=== PATIENT | female | born 1970 | race Caucasian/White ===

== ENCOUNTER 2017-01-27 14:01 | Emergency (ER) | payer OTHER ==
[~2017-01-27] VITALS: Ht 157.5 cm; Wt 66.7 kg
[~2017-01-27 14:01] MED LIST: ATIVAN0.5 M1 PO; DOCUSATE SODIU100 M3 PO; FLONASE ALLERG9.9 ML; LEVOTHYROXINE100 MC1 PO; TIROSINT100 MC1 PO; ZYRTEC10 M3 PO
--- NOTE | 2017-01-27 14:28 | ED GI/GU/ABDOMINAL COMPLAINT ---
History of Present Illness General Chief Complaint: Female Urogenital Problems Stated Complaint: vag bleeding xs 2 weeks Source: patient, family Exam Limitations: no limitations Vital Signs & Intake/Output Vital Signs & Intake/Output Vital Signs Date Time Temp Pulse Resp B/P B/P Pulse O2 O2 Flow FiO2 Mean Ox Delivery Rate 01/27 1751 99.3 71 18 132/92 97 Room Air 01/27 1547 98.0 70 18 131/91 100 Room Air 01/27 1405 97.4 99 16 121/83 99 Room Air ED Intake and Output 01/28 0000 01/27 1200 Intake Total Output Total Balance Patient 147 lb Weight Weight Reported by Patient Measurement Method Allergies Coded Allergies: procaine (From [place]) (Severe, HYPOTENSION 07/18/16) Uncoded Allergies: EPIDURAL (Severe, HYPOTENSION 07/18/16) Reconcile Medications Levothyroxine Sodium (Tirosint) 125 MCG CAPSULE 2 TAB PO DAILY AC THYROID ( Reported) Triage Note: 46 Y/O FEMALE C/O VAGINAL BLEEDING X 3 WEEKS; STATES SHE HAD VAGINAL DELIVERY 14 WEEKS AGO AND THEN STARTED DEPO IN NOVEMBER; STATES SHE BEGAN HAVING VAGINGAL BLEEDING A FEW WEEKS AGO AND IS NOW NOTICING "BROWN BLOOD" WITH "CLOTS". ALSO REPORTS LOWER ABDOMINAL PAIN, DIARRHEA, AND HEADACHES. STATES PAIN RADIATES INTO BACK AT TIMES. DENIES URINARY SYMPTOMS Triage Nurses Notes Reviewed? yes ? n Is pt currently ? Yes HPI: 46 yo F PMH hypothyroidism, HCV presenting with vaginal bleeding, diarrhea, abdominal pain. Vaginal bleeding for the past 3 weeks, daily intermittent dark brown blood with small clots per vagina. Associated diarrhea for the last 3 weeks, patient states that she typically gets diarrhea when she stops taking her Synthroid, has not taken it for the last month despite having a prescription and insurance. Right lower quadrant abdominal pain for the last 2-3 weeks, intermittent, crampy quality, present currently, moderate intensity, intermittent unassociated right upper quadrant pain, sometimes postprandial. Associated nausea with 1 episode of nonbloody nonbilious emesis 3-4 days ago. Mild intermittent headaches, absent currently. As fevers, chills, chest pain, shortness of breath, palpitations, constipation, bloody stools, dysuria, hematuria, vaginal discharge, visual changes, or focal neurologic symptoms. Hasn't been sexually active in 8 months. Denies EtOH or drug use. (SCHOENECK MD,ANNAMARIA) Past History Travel History Traveled to [place] past 21 day No Medical History Any Pertinent Medical History? 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 No (ANNAMARIA HUGHES MD) Review of Systems Review of Systems Constitutional: Reports: malaise. Denies: chills, fever. EENTM: Reports: no symptoms. Respiratory: Reports: no symptoms. Cardiovascular: Reports: no symptoms. GI: Reports: abdominal pain, diarrhea, nausea, vomiting. Genitourinary: Reports: pain. Denies: discharge, dysuria, frequency, hematuria. Musculoskeletal: Reports: no symptoms. Skin: Reports: no symptoms. Neurological/Psychological: Reports: no symptoms. Hematologic/Endocrine: Reports: no symptoms. Immunologic/Allergic: Reports: no symptoms. All Other Systems: Reviewed and Negative (ANNAMARIA HUGHES MD) Physical Exam Physical Exam General Appearance: well developed/nourished, no apparent distress, alert Head: atraumatic, normal appearance, active bleeding Eyes: Bilateral: normal appearance. Ears, Nose, Throat, Mouth: moist mucous membrane Neck: normal inspection, supple, full range of motion Respiratory: normal breath sounds, chest non-tender, no respiratory distress Cardiovascular: regular rate/rhythm, normal peripheral pulses Gastrointestinal: normal bowel sounds, soft, non-tender Neurologic/Psych: no motor/sensory deficits, awake, alert Comments: Abdomen: Soft, Mild bilateral lower abdominal tenderness palpation, right greater than left, mild right upper quadrant tenderness palpation with negative Felix sign, no rebound or guarding Core Measures ACS in differential dx? No Severe Sepsis Present: No Septic Shock Present: No (ANNAMARIA HUGHES MD) Progress Differential Diagnosis: appendicitis, bowel obstruction, cholecystitis, ectopic , hepatitis, ischemic bowel, inflamm bowel dis, intrauterine , kidney stone, ovarian cyst, ovarian torsion, PID/cervicitis, PUD/GERD Plan of Care: Orders Procedure Date/time Status GENITAL CULTURE 01/27 1755 Active TRICHOMONAS 01/27 1750 Complete POTASSIUM HYDROXIDE (MORTEZA) 01/27 1750 Complete CHLAMYDIA-GC DNA PROBE 01/27 1750 Active Add-on Test (ER Only) 01/27 1534 Active THYROID STIMULATING HORMONE 01/27 1520 Complete FREE T4 01/27 1520 Complete LIPASE 01/27 1428 Complete COMPREHENSIVE METABOLIC PANEL 01/27 1428 Complete CBC WITHOUT DIFFERENTIAL 01/27 1428 Complete URINE 01/27 1409 Complete URINALYSIS 01/27 1408 Complete Laboratory Tests 01/27/17 1520: Anion Gap 10, Estimated GFR > 60, BUN/Creatinine Ratio 15.0, Glucose 72, Calcium 9.4, Total Bilirubin 0.7, AST 95 H, ALT 121 H, Alkaline Phosphatase 103, Total Protein 7.5, Albumin 4.4, Globulin 3.1, Albumin/Globulin Ratio 1.4, Lipase 62, TSH 84.200 H, Free T4 0.08 L, CBC w Diff NO MAN DIFF REQ, RBC 4.41, MCV 91.1, MCH 30.2, RDW 14.9 H, MPV 8.7, Gran % 60.9, Lymphocytes % 28.5, Monocytes % 7.7 , Eosinophils % 2.2, Basophils % 0.7, Absolute Granulocytes 3.6, Absolute Lymphocytes 1.7, Absolute Monocytes 0.5, Absolute Eosinophils 0.1, Absolute Basophils 0, PUBS MCHC 33.2 01/27/17 1412: Urine Test NEGATIVE 01/27/17 1412: Urinalysis LIGHT H, Urine Color YEL, Urine Clarity HAZY H, Urine pH 6.0, Ur Specific [place] >= 1.030, Urine Protein 30 H, Urine Ketones NEG, Urine Nitrite NEG, Urine Bilirubin NEG, Urine Urobilinogen 0.2, Ur Leukocyte Esterase NEG, Ur Microscopic SEDIMENT EXAMINED, Urine RBC 5-10 H, Urine WBC 1-3 H, Ur Epithelial Cells MOD H, Urine Bacteria MOD H, Urine Mucus MOD H, Urine Hemoglobin LARGE H, Urine Glucose NEG Microbiology 01/27 1750 GENITAL: MORTEZA Preparation - COMP 01/27 1750 GENITAL: Trichomonas Preparation - COMP 01/27 1750 GENITAL: Genital Culture - RECD 01/27 1750 GENITAL: GC DNA Probe - RECD 01/27 1750 GENITAL: Chlamydia DNA Probe (NANCY) - RECD 01/27 1749 GENITAL: GC Culture - CAN Cancelled: OE ERROR Kevincipal MDM: 46 yo F PMH hypothyroidism, HCV presenting with vaginal bleeding, diarrhea, abdominal pain. VSS, exam as above. DDx: Ovarian cyst, ovarian torsion , UTI, cystitis, pyelonephritis, STI, pelvic inflammatory disease, biliary pathology, colitis, hypothyroidism, less likely appendicitis, SBO, perforation. CMP with mild transaminitis, patient states that her LFTs are typically elevated secondary to hepatitis C. lipase normal. CBC without leukocytosis or anemia. UA contaminated with epithelial cells, significant blood, not especially suggestive of infection. U preg negative. Right Upper quadrant ultrasound without evidence of cholecystitis. TVUS with right ovarian cyst, and normal Doppler flow to bilateral ovaries without evidence of torsion. Pelvic exam performed, closed cervical os with mild dark brown blood in vaginal vault, significant CMT. Cultures for gonorrhea, chlamydia, Trichomonas sent, but given CMT will treat empirically with ceftriaxone and azithromycin. Patient's given follow-up information for several local [employer] M[employer] OPERATOR's. TSH elevated, free T4 low, patient has perception of her Synthroid, importance of adherence to medications discussed with patient, given that lack of appropriate thyroid supplementation is a likely underlying cause of her vaginal bleeding. Given cyst on ultrasound as likely cause of patient's intermittent right lower quadrant pain, further evaluation for appendicitis with CT discussed the patient, using a shared decision making strategy, the patient and I decided that she would monitor for worsening right lower quadrant pain or fevers at home, rather than pursuing a CT scan. Discharged with return precautions for signs of appendicitis, plan and follow-up with SE[employer] M[employer] OPERATOR when possible, plan and follow-up with PMD in the next 2-3 days. (ELLEN HERNDON,ANNAMARIA) Initial ED EKG: none (ELLEN HERNDON,ANNAMARIA) Departure Departure Disposition: HOME OR SELF CARE Condition: Stable Clinical Impression Primary Impression: Ovarian cyst Referrals: ALYX HERNDON,MO LUNA MD,ADRIEN GALVAN MD,SHIV RODRIGUEZ MD,ROCAEL HUSSEIN MD,NATE HERR MD,LAVELLE PENA MD,SHANIKA Additional Instructions: Follow-up with one of the [employer]'s listed in the referral section. Take Tylenol or ibuprofen for pain. Return to the emergency department for any new, worsening, or concerning symptoms. Departure Forms: Customer Survey General Discharge Information (ELLEN HERNDON,ANNAMARIA) Resident Co-Sign Statement Statement: ED Attending supervision documentation- [X] I saw and evaluated the patient. I have also reviewed all the pertinent lab results and diagnostic results. I agree with the findings and the plan of care as documented in the Resident's documentation. [X] I have reviewed the ED Record and agree with the Resident's documentation. [] Additions or exceptions (if any) to the Resident's note and plan are summarized below: [] (JOHN HERNDON,EARNEST [place])
[2017-01-27] MEDS ORDERED: TIROSINT125 MC1 PO (14:40)
[2017-01-27 15:27] LABS: ABSOLUTE BASOPHIL COUNT 0 /CUMM (0.0-0.2); ABSOLUTE EOSINOPHIL COUNT 0.1 /CUMM (0.0-0.7); ABSOLUTE GRANULOCYTE CT 3.6 /CUMM (1.4-6.5); ABSOLUTE LYMPH COUNT 1.7 /CUMM (1.2-3.4); ABSOLUTE MONOCYTE COUNT 0.5 /CUMM (0.10-0.60); BASOPHIL % 0.7 % (0.0-2.0); EOSINOPHIL % 2.2 % (0-5); GRANULOCYTE % 60.9 % (42.2-75.2); HEMATOCRIT 40.2 % (37-47); MEAN CORPUSCULAR HGB 30.2 PG (27.0-31.0); MEAN CORPUSCULAR HGB CONC 33.2 G/DL (33.0-37.0); MEAN CORPUSCULAR VOLUME 91.1 FL (81.0-99.0); MEAN PLATELET VOLUME 8.7 FL (7.4-10.4); PLATELET COUNT 310 /CUMM (130-400); RBC DISTRIBUTION WIDTH 14.9 % (11.5-14.5); RED BLOOD CELL CT 4.41 /CUMM (4.20-5.40); WHITE BLOOD CELL COUNT 5.9 /CUMM (4.8-10.8)
--- NOTE | 2017-01-27 16:31 | ULTRASOUND REPORT ---
EXAMINATION: ULTRASOUND PELVIS CLINICAL INFORMATION: Right lower quadrant pain. COMPARISON: None. TECHNIQUE: Real-time sonographic imaging of the uterus and bilateral adnexa via transabdominal and transvaginal approach. FINDINGS: The uterus is anteverted and measures 7.7 x 3.4 x 4.3 cm in sagittal, AP and transverse dimensions respectively. The cervical length is 1.9 cm. The endometrial stripe measures 0.3 cm in thickness. No uterine fibroids are identified. There are small echogenic foci within the endometrium, likely corresponding to calcifications. These calcifications are entirely nonspecific. The bilateral ovaries appear unremarkable. The right ovary is visualized on transabdominal ultrasound only and measures 3.1 x 1.8 x 2.8 cm, corresponding to a volume of 8.2 mL. There is a cyst within the right ovary measuring 2.1 x 1.1 x 2.4 cm. The left ovary measures 2.9 x 1.2 x 1.9 cm, corresponding to a volume of 3.4 mL. No significant free pelvic fluid. IMPRESSION: A 2.1 x 1.1 x 2.4 cm unilocular cyst within the right ovary. Incidental note is made of several punctate echogenic foci within the endometrium, likely corresponding to calcifications. These calcifications are entirely nonspecific. Otherwise, unremarkable pelvic ultrasound.
[2017-01-27 17:51] VITALS: BP 132/92
--- NOTE | 2017-01-27 19:16 | ULTRASOUND REPORT ---
EXAMINATION: US ABDOMEN LIMITED CLINICAL INFORMATION: Right upper quadrant pain.. COMPARISON: None TECHNIQUE: Real-time imaging of the right upper quadrant abdominal viscera. Color Doppler exam utilized. FINDINGS: PANCREAS: Pancreatic head and body are visualized and are normal. The tail is obscured by bowel gas LIVER: Normal. The liver demonstrates normal size, contour and echogenicity. No focal lesion or intrahepatic biliary duct dilatation. GALLBLADDER: Normal. The gallbladder is physiologically distended without evidence of stones, sludge, polyps, wall thickening or pericholecystic fluid. COMMON BILE DUCT: Normal in caliber measuring 0.3 cm in diameter. RIGHT KIDNEY: Normal. No hydronephrosis. No renal calculi or focal parenchymal lesions. The kidney measures 9.7 cm in maximum dimension. FREE FLUID: None. IMPRESSION: Normal ultrasound of the abdomen.
== END 2017-01-27 20:16 ==
LOC: ERH 14:01
PROVIDERS: Student in an Organized Health Care Education/Training Program
DX: N83.209 Unspecified ovarian cyst, unspecified side (principal)
CPT/HCPCS: 87070; 81001; 81025; 87040; 87491; 87591; 96372; J0456; J0696

== ENCOUNTER 2017-03-14 10:41 | Emergency (ER) | payer OTHER ==
[~2017-03-14] VITALS: Ht 160 cm; Wt 67.6 kg
[~2017-03-14 10:41] MED LIST changes: +TIROSINT125 MC1 PO
--- NOTE | 2017-03-14 11:27 | ED GI/GU/ABDOMINAL COMPLAINT ---
History of Present Illness General Chief Complaint: Abdominal Pain/Flank Pain Stated Complaint: R FLANK PAIN Source: patient Exam Limitations: no limitations Vital Signs & Intake/Output Vital Signs & Intake/Output Vital Signs Date Time Temp Pulse Resp B/P B/P Pulse O2 O2 Flow FiO2 Mean Ox Delivery Rate 03/14 1316 97.5 53 18 121/85 98 Room Air 03/14 1045 98.1 65 18 113/84 100 Room Air Allergies Coded Allergies: epinephrine (PALPATATIONS 02/24/17) Uncoded Allergies: EPIDURAL (Severe, HYPOTENSION 07/18/16) Reconcile Medications Hydrocodone/Acetaminophen (Hydrocodon-Acetaminophen 5-325) 5 MG-325 MG TABLET 1-2 TAB PO Q4-6 PRN PRN pain Levothyroxine Sodium (Tirosint) 125 MCG CAPSULE 2 TAB PO DAILY AC THYROID ( Reported) Triage Note: PT TO ED FOR "THE SAME THING I WAS HERE FOR A MONTH AGO" PT REPORTING RLQ ABD PAIN, WATERY DIARRHEA AND HEADACHE. Triage Nurses Notes Reviewed? yes ? N Is pt currently ? No Onset: Abrupt Duration: week(s):, constant, continues in ED Timing: recent history Quality/Severity: moderate, sharpness, severe Location: right lower quadrant Radiation: no radiation Activities at Onset: none No Modifying Factors: none HPI: 46-year-old female comes into emergency room with complaints of right lower abdominal pain has been going on for a month. Patient reports that she has a 15 -month-old baby at home. She is currently not breast-feeding. She's been transient pain for about a month. Patient was seen here back in January and had an ultrasound done of her abdomen and pelvic area which was normal. She reports that her symptoms have been persistent. Now she's had some associated headache and some diarrhea. Patient was on antibiotics for her tooth infection a few weeks ago. Denies any abdominal surgeries. Denies any other associated symptoms. (RAY NOLEN) Past History Travel History Traveled to [place] past 21 day No Medical History Any Pertinent Medical History? 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 No (RAY NOLEN) Review of Systems Review of Systems Constitutional: Reports: no symptoms. EENTM: Reports: no symptoms. Respiratory: Reports: no symptoms. Cardiovascular: Reports: no symptoms. GI: Reports: no symptoms. Genitourinary: Reports: no symptoms. Musculoskeletal: Reports: see HPI. Skin: Reports: no symptoms. Neurological/Psychological: Reports: no symptoms. Hematologic/Endocrine: Reports: no symptoms. Immunologic/Allergic: Reports: no symptoms. All Other Systems: Reviewed and Negative (RAY NOLEN) Physical Exam Physical Exam General Appearance: well developed/nourished, no apparent distress, alert, awake Head: atraumatic Eyes: Bilateral: normal appearance. Ears, Nose, Throat, Mouth: hearing grossly normal, moist mucous membrane Neck: normal inspection Respiratory: normal breath sounds, no respiratory distress Cardiovascular: regular rate/rhythm Gastrointestinal: soft, tenderness Back: normal inspection Extremities: normal range of motion Neurologic/Psych: awake, alert, oriented x 3, normal gait, normal mood/affect Skin: intact, normal color Core Measures ACS in differential dx? No Severe Sepsis Present: No Septic Shock Present: No (RAY NOLEN) Progress Differential Diagnosis: appendicitis, biliary colic, colon cancer, cholecystitis , diverticulitis, ectopic , gastritis, hernia, hemorrhoids, ischemic bowel, inflamm bowel dis, intrauterine , kidney stone, ovarian cyst, ovarian torsion, pancreatitis, PID/cervicitis, peptic ulcer, PUD/GERD, perforated viscous, SBO, UTI/pyelo Plan of Care: Orders Procedure Date/time Status Add-on Test (ER Only) 03/14 1216 Active THYROID STIMULATING HORMONE 03/14 1140 Complete TOTAL TRIODOTHYROXINE 03/14 1140 Complete THYROXINE 03/14 1140 Complete URINE 03/14 1127 Complete URINALYSIS 03/14 1127 Complete LIPASE 03/14 112 Complete COMPREHENSIVE METABOLIC PANEL 03/14 1127 Complete CBC WITHOUT DIFFERENTIAL 06/27 1127 Complete AMYLASE 06/27 1127 Complete Laboratory Tests 03/14/17 1140: Anion Gap 8, Estimated GFR > 60, BUN/Creatinine Ratio 17.5, Glucose 72, Calcium 9.5, Total Bilirubin 0.9, AST 62 H, ALT 73 H, Alkaline Phosphatase 77, Total Protein 7.2, Albumin 4.5, Globulin 2.7, Albumin/Globulin Ratio 1.7, Amylase 48, Lipase 47, TSH 20.600 H, Thyroxine (T4) 16.6 H, Total T3 1.38, CBC w Diff NO MAN DIFF REQ, RBC 3.96 L, MCV 92.1, MCH 30.4, RDW 15.1 H, MPV 9.1, Gran % 54.6 , Lymphocytes % 32.7, Monocytes % 9.7 H, Eosinophils % 2.2, Basophils % 0.8, Absolute Granulocytes 2.6, Absolute Lymphocytes 1.6, Absolute Monocytes 0.5, Absolute Eosinophils 0.1, Absolute Basophils 0, PUBS MCHC 33.0 03/14/17 1130: Urine Color YEL, Urine Clarity HAZY H, Urine pH 6.0, Ur Specific [place] 1.020, Urine Protein NEG, Urine Ketones NEG, Urine Nitrite NEG, Urine Bilirubin NEG, Urine Urobilinogen 1.0, Ur Leukocyte Esterase NEG, Ur Microscopic SEDIMENT EXAMINED, Urine RBC 1-3, Urine WBC 1-3 H, Ur Epithelial Cells MOD H, Urine Bacteria MOD H, Urine Hemoglobin NEG, Urine Glucose NEG, Urine Test NEGATIVE Microbiology 03/14 112 STOOL: Clostridium difficile Toxin A & B - CAN Cancelled: Cancelled via OE: Per MD Decision Diagnostic Imaging: Viewed by Me: CT Scan. Discussed w/RAD: CT Scan. Radiology Impression: EXAM TYPE: CAT - CT ABD & PELVIS W IV CONTRAST EXAMINATION : CT ABDOMEN AND PELVIS WITH CONTRAST CLINICAL INFORMATION: Right lower abdomen pain COMPARISON: Report of ultrasound 01/27/17 is normal TECHNIQUE: Multidetector volumetric imaging was performed of the abdomen and pelvis before and after the IV administration of 93 mL of Optiray 320 intravenous contrast. Sagittal and coronal reformatted images were obtained on the technologist's workstation. DLP: 324 mGy-cm FINDINGS: LUNG BASES: No suspicious abnormality in the visualized lower chest. There might be a tiny sliding-type hiatal hernia. LIVER, GALLBLADDER, AND BILIARY TREE: No suspicious abnormality the liver. There is no opaque gallstone. There is no biliary dilation. PANCREAS: No suspicious abnormality. SPLEEN: Within normal limits ADRENAL GLANDS: The right adrenal gland is within normal limits. There is a 1.5 cm low attenuating left adrenal mass. The attenuation value is not reliable since IV contrast was administered. There are smooth contours. KIDNEYS AND URETERS: The right kidney appears homogeneous without dilation of the collecting system. No right renal mass or calculus. The left kidney is dysmorphic. There are focal areas of cortical thinning/absence. The left kidney measures approximately 9.4 cm. There is a 0.5 cm upper pole calcification likely in a calyx. There is no overlying cortex. 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 There are total of at least 5 small left renal calculi. The collecting system the lower pole moiety is slightly distended. BLADDER: The bladder is not well distended which might account for some apparent generalized bladder wall thickening. GASTROINTESTINAL TRACT: Gas and fecal residue throughout the colon. The most proximal colon is not well distended. The appendix appears within normal limits. There is no localized pericolonic fat stranding. No significant small bowel dilation. The stomach is not well distended. ABDOMINAL WALL: No significant hernia is appreciated. LYMPH NODES: There are no measurably enlarged abdominal or pelvic lymph nodes. There is a barely perceptible amount of free pelvic fluid which is entirely nonspecific VASCULAR: There is no abdominal aortic aneurysm. The portal vein enhances. PELVIC VISCERA: The uterus is slightly lobular and heterogeneous. I suspect enhancing myometrial masses. Statistically this may represent fibroid. No endometrial thickening. No large adnexal mass. Probable small physiologic left ovarian cyst. OSSEOUS STRUCTURES: No suspicious focal lesion IMPRESSION: There is no acute abnormality which might account for right lower quadrant pain. Specifically no CT evidence of acute appendicitis or abscess. No definite bowel obstruction. 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 Possibilities include areas of reflux or infection. Suspect small uterine fibroids. Initial ED EKG: none (JAKE GAN,RAY) Departure Departure Disposition: HOME OR SELF CARE Condition: Stable Clinical Impression Primary Impression: Right lower quadrant abdominal pain Referrals: JIMI HERNDON,TONY Christian (PCP/Family) Additional Instructions: Follow-up with your primary care doctor. Return to the emergency room immediately if any concerns worsening symptoms. Follow-up with your primary care doctor for outpatient stool sample. Please go over all results of today's visit with your primary care doctor. Contact your primary care doctor to let them know you were here in the emergency room. There may be nonspecific findings which may not be related to your visit today here in the emergency room but may require further evaluation and chronic monitoring by your primary care doctor. If you had a laceration today the chance of foreign body always remains. You should follow-up with your primary care doctor for recheck in 3-5 days for a wound check. If you had an x-ray done there is a chance that a fracture could have been missed on initial read and you should follow-up with your primary care doctor for repeat x-rays if symptoms persist. If your blood pressure was elevated here in the emergency room please have rechecked by her primary care doctor within the next 48 hours by your primary care doctor. If you were prescribed a narcotic here in the emergency room or any type of controlled substances you're not allowed to drive while taking this medication or operate any type of heavy machinery. Narcotics can make you feel lightheaded dizziness nausea and can cause constipation. You may need to cigar packer and picker a stool softener. Thank you for choosing [facility] emergency room. Please return to the emergency room immediately if you have any other concerns worsening of symptoms. Departure Forms: Customer Survey General Discharge Information Prescriptions: Current Visit Scripts Hydrocodone/Acetaminophen (Hydrocodon-Acetaminophen 5-325) 1-2 TAB PO Q4-6 PRN PRN pain #10 TAB Comments 03/14/2017 2:37:37 PM Patient clinically looks well. Patient is in no apparent distress. Patient is nontoxic-appearing. Resting comfortably in room. No guarding. Recent ultrasounds. At this time I do not feel repeat ultrasounds are necessary. Follow-up with primary care doctor. Patient cannot provide a stool sample here for C. difficile and stool culture. She is afebrile. No white count. Low suspicion at this time. Patient will get outpatient stool sample to primary care. Reevaluated multiple times and continued to remain in no apparent distress. Understands and agrees with plan of care. (JAKE GAN,RAY) PA/INSPECTOR AIR CARRIER Co-Sign Statement Statement: ED Attending supervision documentation- I saw and evaluated the patient. I have also reviewed all the pertinent lab results and diagnostic results. I agree with the findings and the plan of care as documented in the PA's/INSPECTOR AIR CARRIER's documentation. x I have reviewed the ED Record and agree with the PA's/INSPECTOR AIR CARRIER's documentation. [] Additions or exceptions (if any) to the PAs/INSPECTOR AIR CARRIER's note and plan are summarized below: [] (JAELYN HERNDON,ROXANN)
[2017-03-14 11:53] LABS: ABSOLUTE BASOPHIL COUNT 0 /CUMM (0.0-0.2); ABSOLUTE EOSINOPHIL COUNT 0.1 /CUMM (0.0-0.7); ABSOLUTE GRANULOCYTE CT 2.6 /CUMM (1.4-6.5); ABSOLUTE LYMPH COUNT 1.6 /CUMM (1.2-3.4); ABSOLUTE MONOCYTE COUNT 0.5 /CUMM (0.10-0.60); BASOPHIL % 0.8 % (0.0-2.0); EOSINOPHIL % 2.2 % (0-5); GRANULOCYTE % 54.6 % (42.2-75.2); HEMATOCRIT 36.5 % (37-47); MEAN CORPUSCULAR HGB 30.4 PG (27.0-31.0); MEAN CORPUSCULAR VOLUME 92.1 FL (81.0-99.0); MEAN PLATELET VOLUME 9.1 FL (7.4-10.4); PLATELET COUNT 268 /CUMM (130-400); RBC DISTRIBUTION WIDTH 15.1 % (11.5-14.5); RED BLOOD CELL CT 3.96 /CUMM (4.20-5.40); WHITE BLOOD CELL COUNT 4.8 /CUMM (4.8-10.8)
--- NOTE | 2017-03-14 13:03 | CT SCAN REPORT ---
EXAMINATION: CT ABDOMEN AND PELVIS WITH CONTRAST CLINICAL INFORMATION: Right lower abdomen pain COMPARISON: Report of ultrasound 01/27/17 is normal TECHNIQUE: Multidetector volumetric imaging was performed of the abdomen and pelvis before and after the IV administration of 93 mL of Optiray 320 intravenous contrast. Sagittal and coronal reformatted images were obtained on the technologist's workstation. DLP: 324 mGy-cm FINDINGS: LUNG BASES: No suspicious abnormality in the visualized lower chest. There might be a tiny sliding-type hiatal hernia. LIVER, GALLBLADDER, AND BILIARY TREE: No suspicious abnormality the liver. There is no opaque gallstone. There is no biliary dilation. PANCREAS: No suspicious abnormality. SPLEEN: Within normal limits ADRENAL GLANDS: The right adrenal gland is within normal limits. There is a 1.5 cm low attenuating left adrenal mass. The attenuation value is not reliable since IV contrast was administered. There are smooth contours. KIDNEYS AND URETERS: The right kidney appears homogeneous without dilation of the collecting system. No right renal mass or calculus. The left kidney is dysmorphic. There are focal areas of cortical thinning/absence. The left kidney measures approximately 9.4 cm. There is a 0.5 cm upper pole calcification likely in a calyx. There is no overlying cortex. 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 There are total of at least 5 small left renal calculi. The collecting system the lower pole moiety is slightly distended. BLADDER: The bladder is not well distended which might account for some apparent generalized bladder wall thickening. GASTROINTESTINAL TRACT: Gas and fecal residue throughout the colon. The most proximal colon is not well distended. The appendix appears within normal limits. There is no localized pericolonic fat stranding. No significant small bowel dilation. The stomach is not well distended. ABDOMINAL WALL: No significant hernia is appreciated. LYMPH NODES: There are no measurably enlarged abdominal or pelvic lymph nodes. There is a barely perceptible amount of free pelvic fluid which is entirely nonspecific VASCULAR: There is no abdominal aortic aneurysm. The portal vein enhances. PELVIC VISCERA: The uterus is slightly lobular and heterogeneous. I suspect enhancing myometrial masses. Statistically this may represent fibroid. No endometrial thickening. No large adnexal mass. Probable small physiologic left ovarian cyst. OSSEOUS STRUCTURES: No suspicious focal lesion IMPRESSION: There is no acute abnormality which might account for right lower quadrant pain. Specifically no CT evidence of acute appendicitis or abscess. No definite bowel obstruction. 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 Possibilities include areas of reflux or infection. Suspect small uterine fibroids.
[2017-03-14 13:16] VITALS: BP 121/85
[2017-03-14] MEDS ORDERED: HYDROCODON-ACE1 EAC2 PO (14:10)
== END 2017-03-14 14:20 ==
LOC: ERH 10:41
PROVIDERS: Physician Assistant Medical
DX: R10.31 Right lower quadrant pain (principal)
CPT/HCPCS: 74177; 81001; 81003; 81025; 87045

== ENCOUNTER → 2017-03-22 | Day surgery (SDC) | payer OTHER ==
--- NOTE | 2017-03-21 10:52 | History & Physical Pre-Op ---
General Information and HPI History of Present Illness: The patient is a 46-year-old 6 para 5 who desires permanent sterilization. He presents today for tubal sterilization. She understands the procedure is permanent and irreversible with a low failure rate and wishes to proceed Allergies/Medications Allergies: Coded Allergies: epinephrine (PALPATATIONS 02/24/17) Uncoded Allergies: EPIDURAL (Severe, HYPOTENSION 07/18/16) Home Med list Levothyroxine Sodium (Tirosint) 125 MCG CAPSULE 2 TAB PO DAILY AC THYROID ( Reported) Past History Medical History Neurological: NONE EENT: NONE Cardiovascular: NONE Respiratory: NONE Gastrointestinal: NONE Hepatic: hepatitis C Renal: NONE Musculoskeletal: NONE Psychiatric: NONE Endocrine: Grave's disease, Marifer's thyroiditis, hypothyroidism, PITUITARY MACROADENOMA Blood Disorders: anemia Cancer(s): NONE 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 Family Services at Home None Primary Language: Persian Functional Ability ADLs Independent: dressing, eating, toileting, bathing. Ambulation: independent IADLs Independent: shopping, housework, finances, food prep, telephone, transportation , medication admin. Review of Systems Review of Systems Constitutional: Reports: no symptoms. EENTM: Reports: no symptoms. Cardiovascular: Reports: no symptoms. Respiratory: Reports: no symptoms. GI: Reports: no symptoms. Genitourinary: Reports: no symptoms. Musculoskeletal: Reports: no symptoms. Skin: Reports: no symptoms. Neurological/Psychological: Reports: no symptoms. Hematologic/Endocrine: Reports: no symptoms. Immunologic/Allergic: Reports: no symptoms. All Other Systems: Reviewed and Negative Exam & Diagnostic Data Last 24 Hrs of Vital Signs/I&O Vital signs stable, afebrile Physical Exam: Weight 151 pounds HEENT: Normocephalic atraumatic Chest: Clear to auscultation bilaterally Cardiovascular: Normal S1, S2 Abdomen: Soft nontender nondistended Pelvic: Deferred to the OR Extremities: No clubbing, cyanosis, or edema Assessment/Plan Assessment/Plan: Multiparity, desires permanent sterilization Plan laparoscopic tubal sterilization 5 mm scope As Ranked By This Provider Problem List: 1. Contraception management
[~2017-03-22] VITALS: Ht 162.6 cm; Wt 65.8 kg
[~2017-03-22] MED LIST changes: +HYDROCODON-ACE1 EAC2 PO
--- NOTE | 2017-03-24 19:09 | Operative Report ---
Operative/Inv Procedure Report Surgery Date: 03/22/17 Name of Procedure: Laparoscopic tubal sterilization Pre-Operative Diagnosis: Multiparity Post-Operative Diagnosis: Same Estimated Blood Loss: scant Surgeon/It Architecture Consultant: SHANIKA PENA MD Anesthesia: general endotracheal tube Operative/Procedure Note Note: The patient was brought to the operating room placed on the OR table in the dorsal supine position. She was given adequate general anesthesia and successfully intubated. She was repositioned in a modified dorsal lithotomy prepped and draped in usual sterile fashion. A weighted speculum was inserted into the vagina with the help of a Bushra retractor single-tooth tenaculum was attached and she'll lip of the cervix. An acorn cannula was inserted into the cervical os and attached to the tenaculum. The weighted speculum and Barton were removed. A Quiros catheter was placed and drained clear yellow urine. The surgeon's gloves were then changed. An infraumbilical skin incision was made with the scalpel and the Veress needle was placed into the abdominal cavity and insufflated with CO2 gas under high flow and low pressure until an adequate pneumoperitoneum had been achieved. At this point appears needle was removed and replaced with a 5 mm disposable trocar. The trocar was removed and the sleeve remained and the camera was placed to see sleeve revealing good anatomic position and hemostasis. The patient was then laced into Trendelenburg position. A suprapubic stab incision was made with the scalpel and a 5 mm disposable trocar was inserted under direct visualization. Through this trocar site a Kleppinger bipolar cautery was placed the right fallopian tube or remnant thereof was grasped with the Kleppinger and electrocoagulated in several areas. The same procedure is repeated on the left fallopian tube which appeared normal. At the end of the procedure pictures were taken and CO2 gas was allowed to escape the abdomen. Hemostasis was good. The instruments are removed and the skin was closed using 0 pop skews before 4-0 Polysorb in an interrupted fashion. They were dressed as well vaginal isthmus removed hemostasis was verified the patient was sent to recovery in good condition. All needle, sponge, and inspected counts are correct at the end of the procedure
== END ==
LOC: STS 03-01 07:00
DX: Z30.2 Encounter for sterilization (principal); E05.00 Thyrotoxicosis with diffuse goiter without thyrotoxic crisis or storm; E06.3 Autoimmune thyroiditis; D35.2 Benign neoplasm of pituitary gland; B19.20 Unspecified viral hepatitis C without hepatic coma
CPT/HCPCS: 81025; J0131; J1100; J2250; J2405

== ENCOUNTER 2017-11-26 19:24 | Emergency (ER) | payer OTHER ==
[~2017-11-26] VITALS: Ht 162.6 cm; Wt 72.6 kg
[~2017-11-26 19:24] MED LIST changes: +ABILIFY10 M1 PO; +CLONIDINE HCL0.1 MG PO; +MOBIC15 M1 PO; +SERTRALINE HCL25 MG PO
--- NOTE | 2017-11-26 20:43 | ED GENERAL ADULT ---
History of Present Illness General Chief Complaint: General Adult Stated Complaint: LUMP ON NECK Source: patient, old records Exam Limitations: no limitations Vital Signs & Intake/Output Vital Signs & Intake/Output Vital Signs Date Time Temp Pulse Resp B/P B/P Pulse O2 O2 Flow FiO2 Mean Ox Delivery Rate 11/26 2301 98.5 88 16 132/82 98 Room Air 11/27 2019 Room Air 11/27 2019 88 124/80 98 Room Air 11/26 1939 98.1 90 20 145/116 98 Room Air Allergies Coded Allergies: epinephrine (PALPATATIONS, ROOM SPINS AND VOMITING 11/19/17) Uncoded Allergies: EPIDURAL (Severe, HYPOTENSION 07/18/16) Reconcile Medications Levothyroxine Sodium (Tirosint) 125 MCG CAPSULE 1 TAB PO DAILY AC THYROID ( Reported) Triage Note: PT REPORTS TAKING A NAP AND WOKE WITH LUMP ON LEFT SIDE OF NECK, DENIES INJURY/TRUAMA. PT REPORTS NO PAIN TO AREA. PT REPORTS HAVING A STIFF NECK ON RIGHT SIDE THIS AM. Triage Nurses Notes Reviewed? yes Onset: Abrupt Duration: hour(s): Timing: single episode today Injury Environment: home Severity: moderate : No Patient currently breastfeeds: Yes HPI: 47yo female with hx of Grave's disease, hepatitis C presents to ED complaining of lump on neck beginning prior to arrival. Patient states that today when she woke up she felt as though her neck was stiff. Patient went about her day, took a nap this afternoon and woke up with lump left side of her neck. Patient's mom felt this lump and thought there might be fluid there. Patient is not having significant pain at this site unless the area is palpated. She has no history of a similar abnormality. Patient denies recent illness, cough, congestion, sore throat, ear pain, trauma or inciting event. (Anabela GAN,Jazz Lawson) Past History Travel History Traveled to [place] past 21 day No Medical History Any Pertinent Medical History? 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 No (Jzaz Brandon) Review of Systems Review of Systems Constitutional: Reports: no symptoms. EENTM: Reports: no symptoms. Respiratory: Reports: no symptoms. Cardiovascular: Reports: no symptoms. GI: Reports: no symptoms. Genitourinary: Reports: no symptoms. Musculoskeletal: Reports: see HPI. Skin: Reports: see HPI. Neurological/Psychological: Reports: no symptoms. Hematologic/Endocrine: Reports: no symptoms. Immunologic/Allergic: Reports: no symptoms. All Other Systems: Reviewed and Negative (Jazz Brandon) Physical Exam Physical Exam General Appearance: well developed/nourished, no apparent distress, alert, awake Head: atraumatic, normal appearance Eyes: Bilateral: normal appearance. Ears, Nose, Throat: normal pharynx, hearing grossly normal Neck: normal inspection, supple, full range of motion, mobile mass to left supraclavicular area with MILD tendernes with palpation, no erythema or fluctuance palpated Respiratory: normal breath sounds, no respiratory distress, lungs clear Cardiovascular: regular rate/rhythm Back: normal inspection, normal range of motion Extremities: normal inspection, normal range of motion Neurologic/Psych: awake, alert, oriented x 3 Skin: intact, normal color, warm/dry Core Measures ACS in differential dx? No CVA/TIA Diagnosis: No Sepsis Present: No Sepsis Focused Exam Completed? No (Jazz Brandon) Physical Exam Lymphatic: SEE NECK EXAM (Talia HERNDON,Juarez Rooney) Progress Differential Diagnoses I considered the following diagnoses in my evaluation of the patient: [Abscess, muscle strain, lymphadenopathy, mass, malignancy] Plan of Care: Orders Procedure Date/time Status COMPREHENSIVE METABOLIC PANEL 11/27 2043 Complete CBC WITHOUT DIFFERENTIAL 11/27 2043 Complete URINE 11/[address] NECK W IV CONTRAST 11/26 2030 Active Laboratory Tests 11/26/174: Anion Gap 8, Estimated GFR > 60, BUN/Creatinine Ratio 16.7, Glucose 75, Calcium 7.7 L, Total Bilirubin 0.7, AST 59 H, ALT 72 H, Alkaline Phosphatase 52, Total Protein 6.1 L, Albumin 3.4 L, Globulin 2.7, Albumin/Globulin Ratio 1.3, CBC w Diff NO MAN DIFF REQ, RBC 4.07 L, MCV 91.4, MCH 30.3, MCHC 33.2, RDW 15.1 H, MPV 8.6, Gran % 57.4, Lymphocytes % 30.0, Monocytes % 10.0 H, Eosinophils % 1.9, Basophils % 0.7, Absolute Granulocytes 3.3, Absolute Lymphocytes 1.7, Absolute Monocytes 0.6, Absolute Eosinophils 0.1, Absolute Basophils 0 11/26/172042: Urine Test NEGATIVE Labs show hypocalcemia compared to previous studies. Corrected calcium based on Albumin is 8.2. Also very mild hypokalemia. Patient's vital signs are stable, no acute distress, she is sitting comfortably in stretcher. The patient was signed out to Dr. Melgar pending CT scan of neck to evaluate for neck swelling. 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 (Talia HERNDON,Juarez Rooney) Departure Departure Condition: Stable Referrals: Marj HERNDON,Shubham Christian (PCP/Family) Departure Forms: Customer Survey General Discharge Information (Jazz Brandon) Departure Disposition: HOME OR SELF CARE Clinical Impression Primary Impression: Anterior cervical lymphadenopathy Secondary Impressions: Hypocalcemia Additional Instructions: Monitor the lump for resolution. Follow-up with your primary care physician this week for repeat calcium level and consideration of calcium supplementation. If the lump does not resolve over the next 1-2 weeks then please have this reevaluated by your primary care physician. Return if any concerns or sudden worsening. Please note that there might be incidental findings in your evaluation that are unrelated to the current emergency department visit. Please notify your primary care doctor about this emergency department visit in order to obtain and review all of the testing performed so that these incidental findings can be monitored as needed. If you had an x-ray performed, please understand that some fractures may not be seen on the initial set of x-rays. If your symptoms persist you might need a repeat set of x-rays to check for such a fracture. If you had a laceration evaluated, please understand that foreign bodies such as glass or wood may not be visible to the naked eye or on plain x-rays. If the wound becomes red, swollen, increasingly more painful or if there is any drainage from the wound, please have it reevaluated by a physician for the possibility of a retained foreign body. If you're unable to follow up as outlined in the discharge instructions please return to the emergency department. Thank you for choosing the [facility] Emergency Department for your care. It was a pleasure to serve you today. Juarez Melgar M.D. [facility] (Talia HERNDON,Juarez Rooney) Critical Care Note Critical Care Note Critical Care Time: non-applicable (Anabela GAN,Jazz Lawson)
[2017-11-26 21:49] LABS: ABSOLUTE BASOPHIL COUNT 0 /CUMM (0.0-0.2); ABSOLUTE EOSINOPHIL COUNT 0.1 /CUMM (0.0-0.7); ABSOLUTE GRANULOCYTE CT 3.3 /CUMM (1.4-6.5); ABSOLUTE LYMPH COUNT 1.7 /CUMM (1.2-3.4); ABSOLUTE MONOCYTE COUNT 0.6 /CUMM (0.10-0.60); BASOPHIL % 0.7 % (0.0-2.0); EOSINOPHIL % 1.9 % (0-5); GRANULOCYTE % 57.4 % (42.2-75.2); HEMATOCRIT 37.2 % (37-47); MEAN CORPUSCULAR HGB 30.3 PG (27.0-31.0); MEAN CORPUSCULAR HGB CONC 33.2 G/DL (33.0-37.0); MEAN CORPUSCULAR VOLUME 91.4 FL (81.0-99.0); MEAN PLATELET VOLUME 8.6 FL (7.4-10.4); PLATELET COUNT 299 /CUMM (130-400); RBC DISTRIBUTION WIDTH 15.1 % (11.5-14.5); RED BLOOD CELL CT 4.07 /CUMM (4.20-5.40); WHITE BLOOD CELL COUNT 5.7 /CUMM (4.8-10.8)
[2017-11-26 23:01] VITALS: BP 132/82
--- NOTE | 2017-11-26 23:50 | CT SCAN REPORT ---
CT NECK WITH IV CONTRAST CLINICAL INFORMATION: Pain with swollen lump at the base of the left neck. COMPARISON: None available. TECHNIQUE: A multidetector CT acquisition of the neck is obtained following the administration of 94 mL of Optiray 320 intravenous contrast without complication. FINDINGS: Examination is very degraded by a combination of motion artifact and streak artifact from the patient's dental hardware. There is no pathologic size criteria cervical lymphadenopathy. The parotid glands are homogeneous in attenuation. The submandibular glands are normal. The thyroid gland is small in size or absent with the visceral space obscured by artifact. No contour abnormality or pathologic enhancement is seen within the oral cavity or pharyngeal mucosal space. No retropharyngeal fluid collection is seen. The laryngeal structures are normal. The parapharyngeal fat is preserved. The carotid sheath vasculature opacify normally. Aberrant right subclavian artery that courses posterior to the esophagus. No extra mucosal soft tissue mass or fluid collection is seen. The superior mediastinum is unremarkable. The lung apices are clear. The mastoid air cells and visualized portions of the paranasal sinuses are well-aerated. Leftward deviation of the anterior nasal septum and rightward deviation of the posterior nasal septum. Severe degenerative disc disease at C3-C4. There is moderate disc volume loss at C5-C6 and C6-C7. There is mild anterior subluxation of C4 on C5. Degenerative changes involving the left mandibular condylar head. Significant rightward convex thoracic scoliosis. The imaged portions of the brain parenchyma are unremarkable. IMPRESSION: - This exam is limited by combination of motion artifact and streak artifact from the patient's dental hardware. No definite acute findings are identified within the neck. There is no cervical lymphadenopathy. No retropharyngeal collections. - The thyroid gland is very small in size or absent with the visceral space obscured by artifact. - Cervical spondylosis. Significant rightward convex thoracic scoliosis. - Degenerative changes involving the left mandibular condylar head. - Aberrant right subclavian artery that courses posterior to the esophagus.
== END 2017-11-26 23:56 ==
LOC: ERH 19:24
PROVIDERS: Physician Assistant
DX: R59.1 Generalized enlarged lymph nodes (principal); E83.51 Hypocalcemia
CPT/HCPCS: 81025